=== PATIENT | male | born 1960 | race Caucasian/White ===

== ENCOUNTER → 2018-02-02 | Outpatient (CLI) | payer BC | LOC: BMCIMAGING 12:05 | PROVIDERS: ATTEND Internal Medicine | DX: S93.401A Sprain of unspecified ligament of right ankle, initial encounter (principal) ==

== ENCOUNTER → 2018-05-19 | Outpatient (CLI) | payer BC, OTHER | LOC: BMCIMAGING 16:09 | PROVIDERS: ATTEND Internal Medicine | DX: R05 Cough (principal); R53.83 Other fatigue ==